=== PATIENT | female | born 1960 | race Caucasian/White ===

== ENCOUNTER → 2016-11-03 | Outpatient (CLI) | payer OTHER | LOC: FIMAGING 15:28 | DX: Z12.31 Encounter for screening mammogram for malignant neoplasm of breast (principal) | CPT/HCPCS: G0202 ==

== ENCOUNTER 2018-08-21 19:00 | Emergency (ER) | payer OTHER ==
--- NOTE | 2018-08-21 19:18 | EDPHY ---
H & P Stated Complaint: R arm dog bite/lac-pt broke up her own dogs fighting current Rabies vac Time Seen by Provider: 08/21/18 19:18 - Personal History Current Tetanus/Diphtheria Vaccine: Yes Current Tetanus Diphtheria and Acellular Pertussis (TDAP): Yes Tetanus Vaccine Date: 2014 - Medical/Surgical History Hx Asthma: No Hx Chronic Respiratory Disease: No Hx Diabetes: No Hx Cardiac Disease: No Hx Renal Disease: No Hx Cirrhosis: No Hx Alcoholism: No Hx HIV/AIDS: No Hx Splenectomy or Spleen Trauma: No Other PMH: denies - Social History Smoking Status: Never smoked Constitutional: Initial Vital Signs Temperature (C) 36.5 C 08/21/18 19:07 Heart Rate 74 08/21/18 19:07 Respiratory Rate 16 08/21/18 19:07 Blood Pressure 128/78 H 08/21/18 19:07 O2 Sat (%) 97 08/21/18 19:07 O2 Delivery Mode Room Air Allergies/Adverse Reactions: codeine Allergy (Verified 08/21/18 19:06) Home Medications: Medication Instructions Recorded Amoxicillin/Clavulanate Pot 875 mg PO BID #20 tab 08/21/18 [Augmentin 875 MG TAB (RX)] Medical Decision Making ED Course/Re-evaluation: CHIEF COMPLAINT: Right wrist injury, dog bite HISTORY OF PRESENT ILLNESS: The patient is a 58 y/o female complaining of a right wrist dog bite. This evening she was breaking up a fight between her two dogs and got bit on her right wrist this evening. She has a laceration along her distal ulna and no other trauma. No weakness, paresthesias. She and both dogs are up-to-date on all vaccinations. She is generally healthy. REVIEW OF SYSTEMS: A comprehensive 10 system review of systems is otherwise negative aside from elements mentioned in the history of present illness and medical decision making. PHYSICAL EXAM: HR, BP, O2 Sat, RR. Temp noted General Appearance: Alert, well hydrated, appropriate, and non-toxic appearing. Head: Atraumatic without scalp tenderness or obvious injury Eyes: Pupils equal, round, reactive to light and accommodation, EOMI, no trauma , no injection. Nose: Atraumatic, no rhinorrhea, clear. Throat: Mucus membranes moist. Neck: Supple. Respiratory: No distress. Cardiovascular: Good capillary refill all extremities. Musculoskeletal: 1cm semi-circular laceration over right ulnar styloid process. Otherwise atraumatic. Normal active ROM of all extremities, atraumatic. Neurological: Alert, appropriate, and interactive. Nonfocal. Skin: No rashes, good turgor, no nodules on palpation. Past medical history: Denies Past surgical history: Denies Family history: Noncontributory Social history: Lives in [place]. . Employed. Nonsmoker. DIAGNOSTICS/PROCEDURES/CRITICAL CARE TIME: Suture repair by REID Huang. DIFFERENTIAL DIAGNOSIS: The differential diagnosis for the patient's injury included but was not limited to dog bite, laceration, fracture, ligamentous injury, contusion, muscular strain. MEDICAL DECISION MAKING: This is a healthy 58 y/o female with up-to-date vaccinations who presents with an isolated injury to her right wrist after she broke up a dog fight this evening. She has a 1cm semi-circular laceration over her right ulnar styloid process. She is neurovascularly intact. Plan for wound care and repair. She will be discharged on Augmentin with standard care and follow up instructions. Return precautions given. - Data Points Medications Given: Discontinued Medications Amoxicillin/Clavulanate Potassium (Augmentin 875mg) 875 mg PO EDNOW ONE PRN Reason: Protocol Stop: 08/21/18 19:22 Last Admin: 08/21/18 19:46 Dose: 875 mg Departure - Departure Disposition: Home, Routine, Self-Care Clinical Impression: Dog bite Qualifiers: Encounter type: initial encounter Qualified Code(s): W54.0XXA - Bitten by dog, initial encounter Wrist laceration Qualifiers: Encounter type: initial encounter Laterality: right Qualified Code(s): S61.511A - Laceration without foreign body of right wrist, initial encounter Condition: Good Instructions: Amoxicillin/Clavulanate Potassium (By mouth), Animal Bite (ED), Laceration (ED) Additional Instructions: 1. Take Augmentin as prescribed. Be sure to complete the entire prescription. 2. Sutures out in 10 days. 3. Follow up with your primary care provider as needed. 4. Return to the ED for any worsening of condition. Referrals: EFRA HINES NP [Primary Care Provider] - As per Instructions Prescriptions: Amoxicillin/Clavulanate Pot [Augmentin 875 MG TAB (RX)] 875 mg PO BID #20 tab Report Scribed for: Martín Drew Report Scribed by: Megan Benedict Date of Report: 08/21/18 Time of Report: 19:39
[2018-08-21] MEDS ORDERED: AMOXICILLIN/CLAVULANATE POT 875/125 MG TAB PO ONE (19:21)
[2018-08-21 20:37] VITALS: BP 151/86
--- NOTE | 2018-08-27 08:54 | PQFORM ---
PHYSICIAN QUERY FORM Needs Your Response This query form is being sent to you to assure this patient record is coded properly. Please respond to the question below: [employer] QUESTION: Dear Ms. Huang, Per documentation by Dr. Drew a laceration repair was completed by you on this patient. A procedure note is required for minimally invasive, noninvasive and bedside procedures. In order to meet accuracy in coding and reporting could you please add a procedure note to the documentation for any procedures you completed during this encounter? Thank you for your assistance. CARLOS EDUARDO Boogie, WHARF TENDER, CCS | [facility] Lock [employer] | Health Information Management INSTRUCTIONS FOR RESPONSE: Answer question by clicking on the "Edit Document" button. Move cursor to area below the stars. When complete, hit "Save." Click on the "Sign" button, then click "Sign" again. Type in your PIN and hit "Enter." Procedure note added to patient's chart MTDD
== END 2018-08-21 20:36 | disposition home or self-care (01) ==
PROC: 0HQDXZZ Repair Right Lower Arm Skin, External Approach (ICD-10-PCS; principal; 2018-08-21)
DX: S61.511A Laceration without foreign body of right wrist, initial encounter (principal); W54.0XXA Bitten by dog, initial encounter; Y92.9 Unspecified place or not applicable; Y93.9 Activity, unspecified; Y99.9 Unspecified external cause status